=== PATIENT | male | born 1980 | race Caucasian/White ===

== ENCOUNTER 2021-03-04 21:58 | Emergency (ER) | payer OTHER ==
[~2021-03-04] VITALS: Ht 182.9 cm; Wt 102.1 kg
[2021-03-05] MEDS ORDERED: KEFLEX250 MG PO (02:07)
[2021-03-05 02:43] VITALS: BP 149/97
== END 2021-03-05 02:45 | disposition home or self-care (01) ==
LOC: M.ERS 21:58
DX: S01.81XA Laceration without foreign body of other part of head, initial encounter (principal); W21.03XA Struck by baseball, initial encounter; Y93.64 Activity, baseball; Y92.320 Baseball field as the place of occurrence of the external cause; Y99.8 Other external cause status